=== PATIENT | male | born 1995 | race African-American/Black ===

== ENCOUNTER 2016-11-16 22:27 | Emergency (ER) | payer OTHER ==
[~2016-11-16] VITALS: Ht 188 cm; Wt 86.2 kg
[2016-11-16] MEDS ORDERED: [UNRECOGNIZED DRUG - REMARK] (22:41)
[2016-11-17 00:18] VITALS: BP 129/67
== END 2016-11-17 00:28 | disposition home or self-care (01) ==
LOC: M ED 23:43
DX: R20.2 Paresthesia of skin (principal); F17.220 Nicotine dependence, chewing tobacco, uncomplicated; Z79.899 Other long term (current) drug therapy

== ENCOUNTER 2016-11-21 12:55 | Emergency (ER) | payer OTHER ==
[~2016-11-21] VITALS: Ht 190.5 cm; Wt 86.2 kg
[~2016-11-21 12:55] MED LIST: [UNRECOGNIZED DRUG - REMARK]
[2016-11-21 15:29] LABS: BASO % 0.9 % (0.0-1.0); EOS # 0.1 K/mm3 (0.0-0.50); LARGE UNSTAINED CELL # 0.1 K/mm3 (0.0-0.4); LARGE UNSTAINED CELL % 2.2 % (0.0-4.0); LYMPH % 42.3 % (24.0-44.0); MEAN CORPUSCULAR HEMOGLOBIN 32.2 pg (27.0-33.0); MEAN CORPUSCULAR HGB CONC 34.9 g/dl (32.0-36.5); MEAN CORPUSCULAR VOLUME 92.3 fl (80.0-96.0); MONO # 0.3 K/mm3 (0.0-0.8); MONO % 6.9 % (0.0-5.0); NEUTROPHILS % 44.7 % (36.0-66.0); PLATELET COUNT, AUTOMATED 259 k/mm3 (150-450); RED CELL DISTRIBUTION WIDTH 12.2 % (11.5-14.5); WHITE BLOOD COUNT 4.4 K/mm3 (4.0-10.0)
[2016-11-21 16:02] LABS: ALBUMIN 3.9 GM/DL (3.2-5.2); ALBUMIN/GLOBULIN RATIO 1.05 (1.00-1.93); ALKALINE PHOSPHATASE 89 U/L (45-117); ALT/SGPT 30 U/L (12-78); ANION GAP 8 MEQ/L (8-16); AST/SGOT 19 U/L (15-37); BILIRUBIN,DIRECT 0.1 MG/DL (0.0-0.2); BILIRUBIN,TOTAL 0.5 MG/DL (0.2-1.0); BLOOD UREA NITROGEN 19 MG/DL (7-18); CALCIUM LEVEL 9.1 MG/DL (8.5-10.1); CARBON DIOXIDE LEVEL 29 MEQ/L (21-32); CHLORIDE LEVEL 104 MEQ/L (98-107); CREATININE FOR GFR 1.31 MG/DL (0.70-1.30); GLOMERULAR FILTRATION RATE > 60.0 (>60); GLUCOSE, FASTING 98 MG/DL (70-105); POTASSIUM SERUM 3.7 MEQ/L (3.5-5.1); SODIUM LEVEL 141 MEQ/L (136-145); TOTAL PROTEIN 7.6 GM/DL (6.4-8.2)
[2016-11-21 16:20] LABS: METHADONE URINE NEGATIVE (NEGATIVE)
[2016-11-21 17:17] VITALS: BP 124/80
== END 2016-11-21 17:18 | disposition home or self-care (01) ==
LOC: M ED 14:19
DX: R22.31 Localized swelling, mass and lump, right upper limb (principal); F17.210 Nicotine dependence, cigarettes, uncomplicated; F20.9 Schizophrenia, unspecified; F32.9 Major depressive disorder, single episode, unspecified
CPT/HCPCS: 36415; 80048; 80076; 80306; 84443; 85025; 99282; G0480

== ENCOUNTER 2016-11-29 15:30 | Emergency (ER) | payer OTHER ==
[~2016-11-29] VITALS: Ht 190.5 cm; Wt 86.2 kg
[2016-11-29] MEDS ORDERED: ALIN500T2 PO (17:20)
[2016-11-29 17:40] VITALS: BP 137/82
[2016-12-03 00:06] LABS: O+P EXAM Final report (.)
== END 2016-11-29 17:44 | disposition home or self-care (01) ==
LOC: M ED 16:58
DX: B82.9 Intestinal parasitism, unspecified (principal)

== ENCOUNTER → 2016-12-19 | Outpatient (REF) | payer OTHER ==
[~2016-12-19] MED LIST changes: +ALIN500T2 PO
== END ==
LOC: M SFHCPLAZ 10:49
PROVIDERS: ATTEND Internal Medicine Infectious Disease
DX: R19.7 Diarrhea, unspecified (principal)

== ENCOUNTER 2017-09-05 13:28 | Emergency (ER) | payer OTHER | END 2017-09-05 15:16 | disposition left against medical advice (07) | LOC: M ED 13:28 | DX: S69.91XA Unspecified injury of right wrist, hand and finger(s), initial encounter (principal); Z53.21 Procedure and treatment not carried out due to patient leaving prior to being seen by health care provider ==